=== PATIENT | female | born 1955 | race Caucasian/White ===

== ENCOUNTER → 2022-08-31 13:40 | Outpatient (BNVA) | payer MEDICARE, MEDICAID, SELFPAY | PROVIDERS: Visit Provider Dietitian, Registered | DX: F50.9 Eating disorder, unspecified (principal); Z71.3 Dietary counseling and surveillance | CPT/HCPCS: 97802 ==

== ENCOUNTER 2023-01-17 10:17 | Outpatient (AMB) | payer MEDICARE, MEDICAID, SELFPAY ==
--- NOTE | 2023-01-17 10:19 | A.OFFVIS_ITS ---
Intake VS Expanded 01/17/23 10:20 Height 4 ft 6 in Weight 87 lb 4.849 oz BMI 21.0 Intake Visit Reasons: maintain bs Allergies Erythrocin Allergy (Unknown, Uncoded 03/04/14 00:00) HPI Nutrition Presentation Details Pt presents for MNT follow up for overeating disorder. The Pt was referred by primary care physician, Dr. Mixon Pt reports she has an overeating disorder, has a tendency to increase on sweets/pastries. Pt reports participating in overeating anonymous meetings and finds them helpful. denies vomiting, denies diarrhea, although reports she was in ER last week related to IBS symptoms with diarrhea. Pt did not want to expand on the topic today. Pt has arthritis in hands and needs easy to prepare meals/snack- brings a list of food items she has tried and has questions regarding the foods, looking for probiotic/prebiotic types of foods Pt reports she continues to participate from home delivered meals on wheels once a day ? Typical meals: lunch from meals on wheels divide in two meals reports getting full too fast (meals consist of 1/2 sand, fruit , milk or hot meal pasta/beef/mixed vegetables, bread, milk , fruit ) reports saving half of the meal for later in the day or may choose Lean cuisine or oatmeal or peanut butter sand snack on fruit, snack bars ,milk physical activity: as able related to scoliosis, uses walker ETOH: denies smoking:denies fruits/d: 0-1 dairy: 1-2 vegetables: 1-2/d fish: not including, poultry 3-4 x/wk, beef/pork 1-2 /wk , eggs 1-2 x/wk starches > 8 serving/d patries/empty farhat foods : 2-3 x/wk Most Recent Diabetes Results: No Data to Display Assessment & Plan Assessment & Plan (1) Eating disorder: Code(s): F50.9 - Eating disorder, unspecified Plan: Educate Pt on healthy plate meal concepts, keeping to meal and fruit schedule ? Used wt : 39 kg Est kcal as per 25 /kcal /kg bw: 977 + 250/500 = 1277- 1477 (40% carb, 30% fat/prot) Est fluid needs: 1000 ml/d (25 ml/kg bw) Rec fiber: increase to 8-10 g per day and gradually increase to 15-20g/d or as tolerated Rec Na: < 2000 mg /d Educate patient on: (R= Reviewed, V = verbalizes understanding N/R= Needs review N/A= not applicable) * Food sources of carbohydrates and serving adequate serving sizes : NR * Difference between complex carbohydrates and simple carbohydrates, role of fiber: R * Differences between fats (MUFA/PUFA/saturated fats, trans fats) and food sources of various fats: N/R * Food sources of sodium and salt and healthy modifications for heart health and kidney health: N/R * Vitamins and minerals: N/R * How to interpret food labels: R , V * Healthy Plate method concept, protein sources of foods : R * Physical activity: benefits and precaution: N/R Patient Instructions: Practice mindful eating Have 3 small meals per day following healthy plate method Choose yogurt as snack, read food labels and choose snacks with protein and less than 15 carbs, chew well. Coding Level of Care Code Nutr Indiv Subseq (97451) Diagnoses Eating disorder F50.9 Time Spent (min) 30
[2023-01-17 10:20] VITALS: BMI 21.0
== END 2023-01-17 11:06 | disposition home or self-care (01) ==
LOC: HO.ENCR 10:17
PROVIDERS: PCP Internal Medicine; Visit Provider Dietitian, Registered
DX: F50.9 Eating disorder, unspecified (principal)

== ENCOUNTER → 2023-01-17 10:17 | Outpatient (BNVA) | payer MEDICARE, MEDICAID, SELFPAY | PROVIDERS: PCP Internal Medicine; Visit Provider Dietitian, Registered | DX: F50.9 Eating disorder, unspecified (principal); Z71.3 Dietary counseling and surveillance | CPT/HCPCS: 97803 ==

== ENCOUNTER 2023-07-18 10:29 | Outpatient (AMB) | payer MEDICARE, MEDICAID, SELFPAY ==
[2023-07-18 10:40] VITALS: BMI 23.7
--- NOTE | 2023-07-18 10:40 | A.OFFVIS_ITS ---
Intake VS Expanded 07/18/23 10:40 Height 4 ft 6 in Weight 98 lb 5.219 oz BMI 23.7 Intake Visit Reasons: F/U Nutrition/CONFIRMED Allergies Erythrocin Allergy (Unknown, Uncoded 03/04/14 00:00) HPI Nutrition Presentation Details Pt presents for MNT for disordered eating pattern. Pt has hx of scoliosisis, arthritis, reports recent dx of breast cancer. Pt has hx of IBS. Pt reports she is at risk of falling and now is spending more time indoors and less physically active. Pt also reports having symptoms of bloating after meals, has noticed increased snacking or larger portions more so since physical activity has lessened Pt presents with F[employer]REGL[employer] G[employer] HAND Pt participates from meals on wheels program ,reports eating 90 % of meal the majority of the time Tends to have cereal with lactose free milk in AM dinner typically frozen meals (lean cuisine) snack on crackers , fruits Needs ideas of foods/snack which may be easy for her to prepare /open due to arthritis in hands Most Recent Diabetes Results: No Data to Display Assessment & Plan Assessment & Plan (1) Eating disorder: Code(s): F50.9 - Eating disorder, unspecified Plan: Educate Pt on healthy plate meal concepts, keeping to meal and fruit schedule ? Used wt : 39 kg (44.5 on 07/2023) Est kcal as per 25 /kcal /kg bw: 977 + 250/500 = 1277- 1477 (40% carb, 30% fat/prot) Est fluid needs: 1000 ml/d (25 ml/kg bw) Rec fiber: increase to 8-10 g per day and gradually increase to 15-20g/d or as tolerated Rec Na: < 2000 mg /d Educate patient on: (R= Reviewed, V = verbalizes understanding N/R= Needs review N/A= not applicable) * Food sources of carbohydrates and serving adequate serving sizes : NR * Difference between complex carbohydrates and simple carbohydrates, role of fiber: R * Differences between fats (MUFA/PUFA/saturated fats, trans fats) and food sources of various fats: N/R * Food sources of sodium and salt and healthy modifications for heart health and kidney health: N/R * Vitamins and minerals: N/R * How to interpret food labels: R , V * Healthy Plate method concept, protein sources of foods : R * Physical activity: benefits and precaution: N/R Patient Instructions: Work on reducing portion sizes which may help in reducing bloating sensation Choose foods lactose free (keep in mind that butters, cereals. breads and other foods have dairy as an ingredient) Take lactate pill with first bite of food with lactose which may prevent bloating sensation Keep hydrated by having water with meals/snacks Coding Level of Care Code Nutr Indiv Subseq (52780) Diagnoses Eating disorder F50.9 Time Spent (min) 30
== END 2023-07-18 11:26 | disposition home or self-care (01) ==
PROVIDERS: PCP Internal Medicine; Visit Provider Dietitian, Registered
DX: F50.9 Eating disorder, unspecified (principal)

== ENCOUNTER → 2023-07-18 10:29 | Outpatient (BNVA) | payer MEDICARE, MEDICAID, SELFPAY | PROVIDERS: PCP Internal Medicine; Visit Provider Dietitian, Registered | DX: F50.9 Eating disorder, unspecified (principal) | CPT/HCPCS: 97803 ==

== ENCOUNTER 2024-01-21 09:59 | Outpatient (REF) | payer MEDICARE, MEDICAID, SELFPAY ==
--- NOTE | ~2024-01-21 | XR_ITS ---
RADIOGRAPH LUMBAR SPINE CLINICAL HISTORY: Scoliosis. COMPARISON: MRI lumbar spine 11/02/2017. TECHNIQUE: 4 views of the lumbar spine including flexion and extension views. FINDINGS: Very pronounced left apical lumbar scoliosis limiting evaluation by radiograph. No discrete acute compression deformity or significant subluxation. Severe multilevel degenerative changes. No significant change in the anteroposterior alignment on the flexion and extension views. Normal appearance of the paraspinal soft tissues. Some calcific densities overlying the expected location of the right renal shadow could represent calculi, largest measuring 0.8 cm. Partially seen total left hip arthroplasty. XR/XR lumbar spine 4V min IMPRESSION: 1. Very pronounced left apical lumbar scoliosis limiting evaluation by radiograph. 2. No significant change in the anteroposterior alignment on flexion and extension views. 3. No discrete acute compression deformity. 4. Equivocal renal calculi. Further evaluation with ultrasound as warranted. Electronically signed by: Cammy Salas MD 02/14/2024 12:48 PM EDT
== END 2024-01-21 10:00 | disposition home or self-care (01) ==
LOC: HO.HOSX 09:59
PROVIDERS: PCP Internal Medicine; Visit Provider Physician Assistant
DX: M41.86 Other forms of scoliosis, lumbar region (principal); N20.0 Calculus of kidney
CPT/HCPCS: 72110; 99202

== ENCOUNTER 2024-01-21 09:59 | Outpatient (AMB) | payer MEDICARE, MEDICAID, SELFPAY ==
--- NOTE | 2024-01-21 10:10 | HO.SPINEOV ---
Intake Visit Reasons: lumbar radiculopathy Intake Note: Ms. Lux is here today c/o right sided Low back pain with throbbing. Crester Required: No Allergies Erythrocin Allergy (Unknown, Uncoded 03/04/14 00:00) Assessment & Plan Assessment & Plan (1) Levoscoliosis of lumbar spine: Code(s): M41.86 - Other forms of scoliosis, lumbar region Category: Medical Plan Dear colleague, Thank you for referring Grace to our office today. Grace is a pleasant 68-year-old female who comes in today with a chief complaint of low back pain accompanied by pain in her left lower extremity. She denies any shooting pain, but states she has pain in her left anterior thigh, left foot, and left calf. She states that this left lower extremity pain in his accompanied by an electric / burning pain. In addition to this she has been suffering from a left-sided footdrop for the past 1 year (wears AFO brace) and has been using a walker to ambulate for the last couple of years. Due to her scoliosis she has a significant height difference in her legs, and has a custom fitted right shoe with a lift. She states that she has had a scoliosis in her spine for the last 20 years. She denies any knowledge/testing for scoliosis as a child. She has had home physical therapy completed without significant relief of symptoms. Dr Salcedo has tried several types of injections with only brief intervals of pain relief. She is currently taking ibuprofen, gabapentin, Vicodin, naproxen, Valium for continued pain relief. PMH: Previous lumbar decompression L3-5 completed in the mid in [place] (unsure of surgeon name). Osteoporosis currently on Fosamax, hypothyroidism, irritable bowel syndrome, generalized anxiety disorder, major depression, severe scoliosis, arthritis, right-sided breast cancer with tumor resection and currently on tamoxifen. History of tonsillectomy, left total hip replacement 2008. Social hx: The patient does not smoke, reports no substance use. Medications: Fosamax, albuterol, Ventolin, calcium acetate, cyclobenzaprine, diltiazem, dicyclomine, gabapentin, ipratropium, levothyroxine,linaclotide, mirtazapine, ondansetron, senna, simvastatin, tamoxifen, trazodone, venlafaxine. Allergies: Erythromycin. Physical exam: The patient has 2/5 strength with left-sided dorsiflexion, 3/5 strength with left sided plantar flexion. The remainder of her lower extremities are 4/5. She ambulates with the assistance of a walker, wears an AFO brace on her left foot, and has a shoe with a lifting on the right to accommodate for her difference in leg length. Her left-sided patellar reflex is absent. The rest of her reflexes are 2+ intact. (-) straight leg raise bilaterally, (-) clonus. Imaging review: MRI of the lumbar spine completed at [facility] shows evidence of previous L3-5 lumbar decompression, with a severe levoscoliosis which appears degenerative in nature. Impression: Grace is a pleasant 68-year-old female that comes in today with a chief complaint of chronic low back pain, and worsening immobility. She has a history of scoliosis which he found out about roughly 20 years ago. Her symptoms have been worsening. She states that less than 10 years ago she was able to walk around, and complete ADLs without significant issue. She is now the point where she has a left-sided footdrop, and is ambulating only with the assistance of a walker. Her pain is significantly increase in the course of the last 5-10 years. She is now seeking potential surgical options to help relieve her pain. I informed her that we will be sending her for a set of lumbar spine x-ray imaging, and CT scan in order to better evaluate the severity and anatomy of her levoscoliosis. It is highly likely given that she has a left-sided footdrop in an absent patellar reflex on the left there is severe compression on the L4/5 nerve roots on the left. We will follow up with the patient after her CT scan is complete. I asked her to call the office after this. Thank you for allowing us to care for your patient. The total time spent with this visit with this patient was 45 minutes reviewing history, physical exam, MRI imaging review, and implementation of treatment plan or further diagnostic testing Hernando Laughlin MD,PhD [facility] Danilo Laughlin MD,PhD [facility] Orders: Orders CT lumbar spine wo IV con Today M41.86 - Other forms of scoliosis, lumbar region XR lumbar spine 4V min Today M41.86 - Other forms of scoliosis, lumbar region Coding Level of Care Code New Pt Level 4 (96221) Diagnoses Levoscoliosis of lumbar spine M41.86
== END 2024-01-21 11:13 | disposition home or self-care (01) ==
PROVIDERS: PCP Internal Medicine; Referring Provider Physician Assistant; Visit Provider Physician Assistant
DX: M41.86 Other forms of scoliosis, lumbar region (principal)
CPT/HCPCS: 99204

== ENCOUNTER 2024-01-23 10:52 | Outpatient (AMB) | payer MEDICARE, MEDICAID, SELFPAY ==
--- NOTE | 2024-01-23 10:59 | A.OFFVIS_ITS ---
VS Expanded 01/23/24 11:00 Height 4 ft 6 in Weight 101 lb 6.602 oz BMI 24.4 Intake Visit Reasons: Monitor weight/CONFIRMED Allergies Erythrocin Allergy (Unknown, Uncoded 03/04/14 00:00) Nutrition Presentation Details: Pt presents for MNT f/u for disordered eating pattern Pt reports physical activity has lessened due to scoliosis Pt reports finding herself at home the majority of the time with less physical activity and increasing on snacks BS Monitoring Most Recent Diabetes Results: No Data to Display Assessment & Plan Assessment & Plan (1) Eating disorder: Code(s): F50.9 - Eating disorder, unspecified Category: Medical Plan: Used wt : 39 kg (44.5 on 07/2023) Est kcal as per 25 /kcal /kg bw: 977 + 250/500 = 1277- 1477 (40% carb, 30% fa t/prot) Est fluid needs: 1000 ml/d (25 ml/kg bw) Rec fiber: increase to 8-10 g per day and gradually increase to 15-20g/d or as tolerated Rec Na: < 2000 mg /d Educate patient on: (R= Reviewed, V = verbalizes understanding N/R= Needs review N/A= not applicable) * Food sources of carbohydrates and serving adequate serving sizes : R * Difference between complex carbohydrates and simple carbohydrates, role of fiber: R * Differences between fats (MUFA/PUFA/saturated fats, trans fats) and food sources of various fats: R * Food sources of sodium and salt and healthy modifications for heart health and kidney health: R * Vitamins and minerals: N/R * How to interpret food labels: R , V * Healthy Plate method concept, protein sources of foods : R * Physical activity: benefits and precaution: N/R Patient Instructions: Choose high fiber snacks : fruits, cucumbers, carrots - see list of options Keep hydrated by having water with meals and snacks Coding Level of Care Code Nutr Indiv Subseq (28868) Diagnoses Eating disorder F50.9 Time Spent (min) 20
[2024-01-23 11:00] VITALS: BMI 24.4
== END 2024-01-23 11:32 | disposition home or self-care (01) ==
PROVIDERS: PCP Internal Medicine; Visit Provider Dietitian, Registered
DX: F50.9 Eating disorder, unspecified (principal)

== ENCOUNTER → 2024-01-23 10:52 | Outpatient (BNVA) | payer MEDICARE, MEDICAID, SELFPAY | PROVIDERS: PCP Internal Medicine; Visit Provider Dietitian, Registered | DX: F50.9 Eating disorder, unspecified (principal); Z71.3 Dietary counseling and surveillance | CPT/HCPCS: 97803 ==

== ENCOUNTER 2024-02-06 07:47 | Outpatient (REF) | payer MEDICARE, MEDICAID, SELFPAY ==
--- NOTE | ~2024-02-06 | CT_ITS ---
EXAMINATION: CT LUMBAR SPINE WITHOUT CONTRAST CLINICAL INFORMATION: Lumbar scoliosis. COMPARISON: Lumbar spine MRI from 11/02/2017. Lumbar spine radiographs from 01/21/2024. TECHNIQUE: Multidetector helical imaging of the lumbar spine was obtained without intravenous contrast. Multiple axial reformats and coronal/sagittal reconstructions were created the technologist workstation for review. This CT examination was performed using dose optimization techniques as appropriate, variously including the following: *Automated exposure control. *Adjustment of mA and/or kV according to patient size (this includes techniques or standardized protocols for targeted exams where dose is matched to indication/reason for exam; i.e. extremities or head). *Use of iterative reconstruction technique. DLP: 313 mGy-cm FINDINGS: There are 5 nonrib-bearing lumbar-type vertebral segments. Prominent left convex curvature of the lumbar spine. Mild right lateral translation of T10 and T11. Mild left lateral translations of L3 on L4 and L4 on L5. Mild degenerative retrolisthesis of L5 on S1. No evidence of acute fracture or traumatic subluxation. The vertebral body heights are maintained. Advanced degeneration of the intervertebral discs along the right aspect of the scoliotic curvature from T10-L4 and along the left aspect of the scoliotic curvature from L3-S1. No suspicious lytic or sclerotic osseous lesions. Prior left hip arthroplasty. No significant abnormalities of the paraspinal musculature. There is a 2.6 cm simple cyst in the right kidney (no follow-up imaging recommended based on current guidelines at the time of examination). Moderate fatty atrophy of the posterior paraspinal musculature below the level of L4. Otherwise, limited evaluation of the intra-abdominal structures without significant abnormalities. The abdominal aorta is of normal contour and caliber with mild calcific atherosclerotic disease. AXIAL SPINAL LEVELS: L1-L2: Moderate diffuse disc bulge with superimposed central disc protrusion. There is moderate bilateral facet joint arthropathy. There is moderate right and no left neural foraminal stenosis. There appears to a mild spinal canal stenosis. L2-L3: Mild diffuse disc bulge. There is moderate bilateral facet joint arthropathy. There is moderate right and no left neural foraminal stenosis. There is no demonstrated spinal canal stenosis. L3-L4: Moderate diffuse disc bulge with posterior osseous ridging. There is severe right and moderate left facet joint arthropathy. There is severe left and moderate neural foraminal stenosis. There appears to be severe moderate diffuse disc bulge with posterior osseous ridging spinal canal stenosis. L4-L5: Moderate diffuse disc bulge with posterior osseous ridging. There is moderate left and mild right facet joint arthropathy. There is severe left and moderate right neural foraminal stenosis. There appears to moderate to severe spinal canal stenosis. L5-S1: Moderate diffuse disc bulge with posterior osseous ridging. There is moderate bilateral facet joint arthropathy. There is severe left and moderate right neural foraminal stenosis. There appears to be mild spinal canal stenosis. CT/CT lumbar spine wo IV con IMPRESSION: 1. No evidence of acute fracture or traumatic subluxation of the lumbar spine. 2. Prominent left convex curvature of the lumbar spine. 3. 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 Most notably on this limited exam without intrathecal contrast, there appears to be moderate to severe spinal canal stenosis at L4-L5. Mild spinal canal stenoses at L1-L2, L3-L4, and L5-S1. Moderate to severe neural foraminal stenoses from L1-S1. Electronically signed by: Barrett Padgett DO 02/07/2024 01:21 PM EDT
== END 2024-02-06 07:48 | disposition home or self-care (01) ==
LOC: HO.CT 07:47
PROVIDERS: PCP Internal Medicine; Visit Provider Physician Assistant
DX: M41.86 Other forms of scoliosis, lumbar region (principal)
CPT/HCPCS: 72131